=== PATIENT | female | born 1975 ===

== ENCOUNTER 2018-10-20 16:52 | Emergency (ER) | payer OTHER ==
[2018-10-20 17:07] VITALS: BMI 27.3
[2018-10-20 17:09] VITALS: O2SAT 100
--- NOTE | 2018-10-20 17:26 | C.PDOC ---
History Of Present Illness 42 year old female presents to the emergency department with complaints of a headache for one week, associated with dizziness, nausea, and vomiting for one day. Patient denies recent travel, sick contact, neck stiffness, or change in vision. <Sona PEREZCale - Last Filed: 10/20/18 18:24> History/Exam Limitations: no limitations Onset/Duration Of Symptoms: Other (one week) Associated Symptoms: Nausea, Vomiting, Other (dizziness). denies: Photophobia, Blurred Vision <Mylescyn PEREZCale - Last Filed: 10/20/18 18:24> <Christopher Mccarty - Last Filed: 10/20/18 20:21> Time Seen by Provider: 10/20/18 17:10 Chief Complaint (Nursing): Headache Past Medical History Reviewed: Historical Data, Nursing Documentation, Vital Signs Vital Signs: Last Vital Signs Temp 98.2 F 10/20/18 17:07 Pulse 76 10/20/18 17:07 Resp 18 10/20/18 17:07 BP 174/85 H 10/20/18 17:07 Pulse Ox 100 10/20/18 17:07 - Medical History PMH: No Chronic Diseases Surgical History: No Surg Hx Family History: States: No Known Family Hx - Social History Hx Alcohol Use: No Hx Substance Use: No - Immunization History Hx Tetanus Toxoid Vaccination: No Hx Influenza Vaccination: No Hx Pneumococcal Vaccination: No <Cale Magallanes DO - Last Filed: 10/20/18 18:24> Vital Signs: Last Vital Signs Temp 98.2 F 10/20/18 17:07 Pulse 76 10/20/18 17:07 Resp 18 10/20/18 17:07 BP 174/85 H 10/20/18 17:07 Pulse Ox 100 10/20/18 18:33 <Christopher Mccarty - Last Filed: 10/20/18 20:21> Review Of Systems Except As Marked, All Systems Reviewed And Found Negative. Constitutional: Negative for: Fever Eyes: Negative for: Vision Change Gastrointestinal: Positive for: Nausea, Vomiting Musculoskeletal: Negative for: Neck Pain (stiffness) Neurological: Positive for: Headache, Dizziness <Mylescyn PEREZCale Ayala Last Filed: 10/20/18 18:24> Physical Exam - Physical Exam Appears: Well, Non-toxic, No Acute Distress Skin: Normal Color, Warm, Dry Head: Atraumatic, Normacephalic Eye(s): bilateral: Normal Inspection, PERRL, EOMI Nose: Normal Oral Mucosa: Dry Neck: Normal, Supple Chest: Symmetrical, No Tenderness Cardiovascular: Rhythm Regular, No Murmur Respiratory: Normal Breath Sounds, No Rales, No Rhonchi, No Wheezing Gastrointestinal/Abdominal: Soft, No Tenderness Extremity: Normal ROM Neurological/Psych: Oriented x3, Normal Speech, Normal Cognition, Normal Motor, Normal Sensation Gait: Steady <Mylescyn PEREZCale Lr Filed: 10/20/18 18:24> ED Course And Treatment - Laboratory Results Result Diagrams: 10/20/18 17:44 10/20/18 17:44 O2 Sat by Pulse Oximetry: 100 (RA) Pulse Ox Interpretation: Normal <Jaylonkriss Cale Lr Filed: 10/20/18 18:24> - Laboratory Results Result Diagrams: 10/20/18 17:44 10/20/18 17:44 Lab Interpretation: Normal (ua neg, preg neg.) Urine POC: Negative Reevaluation Time: 20:20 Reassessment Condition: Improved (headache resolved) <Christopher Mccarty Jamar Lr Filed: 10/20/18 20:21> Medical Decision Making Medical Decision Making: Plan: CT Abdomen and Pelvis CT Head Chemistry Bloodwork Pepcid 20mg IVP NaCl IV Fluids Toradol 30mg IVP Zofran 8mg IVP Urine Culture POC Urine Urinalysis <Jaylonkriss Cale Ayala Filed: 10/20/18 18:24> Medical Decision Making: mild viral syndrome normal w/u normal head/abd/pelvis CT <Christopher Mccarty Jamar Ayala Last Filed: 10/20/18 20:21> Disposition <Mylescyn PEREZCale Ayala Filed: 10/20/18 18:24> Doctor Will See Patient In The: Office Counseled Patient/Family Regarding: Studies Performed, Diagnosis - Disposition Disposition Time: 20:21 <Christopher Mccarty Be Filed: 10/20/18 20:21> - Disposition Disposition: HOME/ ROUTINE Condition: GOOD Forms: [facility] (Kittitian) - Clinical Impression Clinical Impression: Headache, Body aches - Scribe Statement The provider has reviewed the documentation as recorded by the Scribe (Srini Ding) Provider Attestation: All medical record entries made by the Scribe were at my direction and personally dictated by me. I have reviewed the chart and agree that the record accurately reflects my personal performance of the history, physical exam, medical decision making, and the department course for this patient. I have also personally directed, reviewed, and agree with the discharge instructions and disposition. <Cale Magallanes DO - Last Filed: 10/20/18 18:24>
[2018-10-20] MEDS ORDERED: Sodium Chloride 0.9% 1,000 ML IV ONE (17:27)
[2018-10-20] MEDS ORDERED: Sodium Chloride 0.9% 1,000 ML ONE (18:04)
[2018-10-20 18:09] LABS: ALB/GLOB RATIO 1.3 (1.0-2.1); ALBUMIN 4.5 g/dL (3.5-5.0); ALT/SGPT 26 U/L (9-52); AST/SGOT 30 U/L (14-36); BLOOD UREA NITROGEN 15 mg/dL (7-17); CALCIUM 8.8 mg/dl (8.6-10.4); GFR NON-AFRICAN AMERICAN > 60; LIPASE 91 U/L (23-300)
[2018-10-20 18:13] LABS: SQUAMOUS EPITHIAL 1 /hpf (0-5); URINE BACTERIA OCC (<OCC); URINE BILIRUBIN NEGATIVE (NEGATIVE); URINE BLOOD 1+ (NEGATIVE); URINE CLARITY Hazy (Clear); URINE COLOR Yellow (YELLOW); URINE GLUCOSE (UA) NORMAL (Normal); URINE LEUKOCYTE ESTERASE TRACE Leu/uL (Negative); URINE PROTEIN 1+ mg/dL (NEGATIVE); URINE UROBILINOGEN NORMAL mg/dL (0.2-1.0)
[2018-10-20 18:16] LABS: BASO % 0.4 % (0.0-2.0); EOS # 0.4 K/uL (0.0-0.7); HEMOGLOBIN 10.3 g/dL (11.0-16.0); LYMPH # 1.8 K/uL (1.0-4.3); LYMPH % 21.7 % (20.0-40.0); MEAN CELL VOLUME 69.6 fL (81.0-99.0); MEAN CORPUSCULAR HEMOGLOBIN 21.9 pg (27.0-31.0); MEAN CORPUSCULAR HGB CONC 31.4 g/dL (33.0-37.0); MEAN PLATELET VOLUME 8.5 fL (7.2-11.7); MONO # 0.5 K/uL (0.0-0.8); MONO % 5.7 % (0.0-10.0); NEUT # 5.6 K/uL (1.8-7.0); NEUT % 67.2 % (50.0-75.0); RBC 4.73 Mil/uL (3.80-5.20); RED CELL DISTRIBUTION WIDTH 17.8 % (11.5-14.5); WHITE BLOOD COUNT 8.3 K/uL (4.8-10.8)
[2018-10-20] MEDS ORDERED: Iodixanol 320 MG/ML 100 ML BOTTLE IV ONE (19:46)
[2018-10-20 20:33] VITALS: BP 149/79; PULSE 72; RESP 17; TEMP 98.1
--- NOTE | 2018-10-21 09:51 | CT ---
Date of service: 10/20/2018 PROCEDURE: CT HEAD WITHOUT CONTRAST. HISTORY: r/o ICH COMPARISON: None available. TECHNIQUE: Axial computed tomography images were obtained through the head/brain without intravenous contrast. Radiation dose: Total exam DLP = 1000.59 mGy-cm. This CT exam was performed using one or more of the following dose reduction techniques: Automated exposure control, adjustment of the mA and/or kV according to patient size, and/or use of iterative reconstruction technique. FINDINGS: HEMORRHAGE: No intracranial hemorrhage. BRAIN: No mass effect or edema. No atrophy or chronic microvascular ischemic changes. VENTRICLES: Unremarkable. No hydrocephalus. CALVARIUM: Unremarkable. PARANASAL SINUSES: Unremarkable as visualized. No significant inflammatory changes. MASTOID AIR CELLS: Unremarkable as visualized. No inflammatory changes. OTHER FINDINGS: None. IMPRESSION: Normal CT of the Head. The preliminary findings for this examination were reported by [facility] at 9:13 p.m. on 10/20/2018. There is concurrence of this report with the preliminary findings.
--- NOTE | 2018-10-21 10:06 | CT ---
Date of service: 10/20/2018 PROCEDURE: CT Abdomen and Pelvis with contrast HISTORY: diffuse abdominal pain with vomiting COMPARISON: None. TECHNIQUE: Contrast dose: 100 mL Visipaque 320 Radiation dose: Total exam DLP = 733.61 mGy-cm. This CT exam was performed using one or more of the following dose reduction techniques: Automated exposure control, adjustment of the mA and/or kV according to patient size, and/or use of iterative reconstruction technique. FINDINGS: LOWER THORAX: Unremarkable. LIVER: Nonspecific 9 mm low-attenuation lesion in the lateral segment of the left hepatic lobe. GALLBLADDER AND BILE DUCTS: Unremarkable. PANCREAS: Unremarkable. No gross lesion or ductal dilatation. SPLEEN: Unremarkable. ADRENALS: Unremarkable. No mass. KIDNEYS AND URETERS: Unremarkable. No hydronephrosis. No solid mass. VASCULATURE: Unremarkable. No aortic aneurysm. No aortic atherosclerotic calcification or mural plaque present. BOWEL: Unremarkable. No obstruction. No gross mural thickening. APPENDIX: Normal appendix. PERITONEUM: Unremarkable. No free fluid. No free air. LYMPH NODES: Unremarkable. No enlarged lymph nodes. BLADDER: Unremarkable. REPRODUCTIVE: Normal uterus BONES: No acute fracture. OTHER FINDINGS: None. IMPRESSION: Incidental 9 mm low-attenuation rounded lesion in the lateral segment of the left hepatic lobe. No additional abnormality. The preliminary findings for this examination were reported by [facility] at 9:17 p.m. on 10/20/2018. There is concurrence of this report with the preliminary findings.
== END 2018-10-20 20:32 | disposition home or self-care (01) ==
LOC: C.ER 16:52
DX: R51 Headache (principal); R52 Pain, unspecified
CPT/HCPCS: 70450; 74177; 80053; 81001; 83690; 85025; 87086; 96374; 96375; 99284; J1885; J2405; J7030; Q9967